=== PATIENT | male | born 1955 | race Caucasian/White ===

== ENCOUNTER → 2018-06-01 | Day surgery (SDC) | payer OTHER ==
[~2018-06-01] MED LIST: ASPI-630 PO; CANA300T PO; CELE200C PO; CYCL10TA2 PO; ESOM20CA PO; INSU100I13 SQ; LISI10TA2 PO; LORA10TA3 PO; PREG50CA PO; PROPOFOL 20 ML IV ONE; SILD20TA2 PO; SITA1TAB7 PO; TRAZ-85 PO; VALA1000 PO
[2018-06-01 09:38] VITALS: BP 121/74
== END | disposition home or self-care (01) ==
LOC: SURG 08:03
PROVIDERS: ATTEND Internal Medicine Gastroenterology
DX: K29.50 Unspecified chronic gastritis without bleeding (principal); D50.9 Iron deficiency anemia, unspecified; K64.0 First degree hemorrhoids; M19.90 Unspecified osteoarthritis, unspecified site; E11.9 Type 2 diabetes mellitus without complications; F41.9 Anxiety disorder, unspecified; F32.9 Major depressive disorder, single episode, unspecified; I10 Essential (primary) hypertension; K21.9 Gastro-esophageal reflux disease without esophagitis; Z98.890 Other specified postprocedural states; Z86.010 Personal history of colon polyps; Z79.4 Long term (current) use of insulin; Z79.899 Other long term (current) drug therapy; Z79.82 Long term (current) use of aspirin; Z98.52 Vasectomy status
CPT/HCPCS: 43235; 45378; J2704